=== PATIENT | male | born 1990 | race African-American/Black ===

== ENCOUNTER → 2018-05-13 | Outpatient (CLI) | payer OTHER | LOC: ULTRA 07:41 | DX: K82.9 Disease of gallbladder, unspecified (principal); R16.0 Hepatomegaly, not elsewhere classified ==

== ENCOUNTER 2019-03-22 10:12 | Emergency (ER) | payer OTHER ==
[~2019-03-22] VITALS: Ht 175.3 cm; Wt 72.6 kg
[2019-03-22 10:12] VITALS: BP 123/84
[2019-03-22 10:51] LABS: URINE BILIRUBIN NEGATIVE (Negative); URINE BLOOD TRACE (Negative); URINE CLARITY CLEAR; URINE COLOR YELLOW; URINE GLUCOSE-RANDOM* NEGATIVE (Negative); URINE KETONES NEGATIVE (Negative); URINE LEUKOCYTES NEGATIVE (Negative); URINE NITRITE NEGATIVE (Negative); URINE PROTEIN (DIPSTICK) NEGATIVE (Negative); URINE SPECIFIC GRAVITY 1.015 (1.005-1.035); URINE UROBILINOGEN 0.2 E.U./dl (0.2-1.0)
[2019-03-22 11:14] LABS: ABSOLUTE NEUTROPHILS 2.1 thou/uL (1.4-8.2); BASOPHILS 0.8 % (0.0-2.0); EOSINOPHILS 1.5 % (0.0-3.0); HEMATOCRIT 41.2 % (42.0-52.0); HEMOGLOBIN 13.6 gm/dL (14.0-18.0); LYMPHOCYTES 38.4 % (24.0-44.0); MCH 27.8 pg (26.0-34.0); MCHC 32.9 g/dL (28.0-37.0); MCV 84.4 fL (80.0-100.0); MONOCYTES 10.7 % (1.0-8.0); PLATELET COUNT 242 thou/uL (150-400); POLYS 48.6 % (36.0-66.0); RBC 4.88 mil/uL (4.50-6.00); WBC 4.3 thou/uL (4.0-11.0)
[2019-03-22 11:20] LABS: CALCIUM 9.2 mg/dL (8.5-10.1); CREATININE 0.9 mg/dL (0.7-1.3)
[2019-03-22 11:26] LABS: ALBUMIN 4.2 g/dL (3.4-5.0); TOTAL BILIRUBIN 0.5 mg/dL (<0.1-1.0); TOTAL PROTEIN 7.8 g/dL (6.4-8.2)
[2019-03-22] MEDS ORDERED: NAPROSYN500 MG PO (11:42)
[2019-03-22] MEDS ORDERED: NORFLEX100 MG PO (11:42)
[2019-03-23] MEDS ORDERED: LIDOCAINE PAIN1 EACH TRANSDERM (15:26)
[2019-03-23] MEDS ORDERED: MOBIC15 MG PO (15:26)
== END 2019-03-22 11:45 | disposition home or self-care (01) ==
LOC: ER 10:12
PROVIDERS: Emergency Medicine
DX: S29.012A Strain of muscle and tendon of back wall of thorax, initial encounter (principal); F17.210 Nicotine dependence, cigarettes, uncomplicated; X50.0XXA Overexertion from strenuous movement or load, initial encounter; Y92.89 Other specified places as the place of occurrence of the external cause; Y93.89 Activity, other specified; Y99.8 Other external cause status

== ENCOUNTER 2019-03-23 13:22 | Emergency (ER) | payer OTHER ==
[~2019-03-23] VITALS: Ht 175.3 cm; Wt 68.0 kg
[~2019-03-23 13:22] MED LIST: NAPROSYN500 MG PO; NORFLEX100 MG PO
[2019-03-23] MEDS ORDERED: MOBIC15 MG PO (15:26)
[2019-03-23] MEDS ORDERED: LIDOCAINE PAIN1 EACH TRANSDERM (15:26)
[2019-03-23 15:27] VITALS: BP 112/67
== END 2019-03-23 15:20 | disposition home or self-care (01) ==
LOC: ER 13:22
DX: S09.90XA Unspecified injury of head, initial encounter (principal); M54.5 Low back pain; M79.641 Pain in right hand; F17.210 Nicotine dependence, cigarettes, uncomplicated; X58.XXXA Exposure to other specified factors, initial encounter; Y93.89 Activity, other specified; Y92.89 Other specified places as the place of occurrence of the external cause; Y99.8 Other external cause status

== ENCOUNTER 2020-01-03 13:54 | Emergency (ER) | payer OTHER ==
[~2020-01-03] VITALS: Ht 175.3 cm; Wt 77.1 kg
[~2020-01-03 13:54] MED LIST changes: +LIDOCAINE PAIN1 EACH TRANSDERM; +MOBIC15 MG PO
[2020-01-03 14:01] VITALS: BP 130/85
== END 2020-01-03 14:38 | disposition home or self-care (01) ==
LOC: ER 13:54
DX: R19.7 Diarrhea, unspecified (principal); F17.210 Nicotine dependence, cigarettes, uncomplicated; Z79.899 Other long term (current) drug therapy

== ENCOUNTER 2020-01-10 10:22 | Emergency (ER) | payer OTHER ==
[~2020-01-10] VITALS: Ht 172.7 cm; Wt 68.0 kg
[2020-01-10] MEDS ORDERED: ZOFRAN ODT4 MG DISSOLVE (12:09)
[2020-01-10 12:10] VITALS: BP 129/94
== END 2020-01-10 12:10 | disposition home or self-care (01) ==
LOC: ER 10:22
DX: R11.2 Nausea with vomiting, unspecified (principal); F17.210 Nicotine dependence, cigarettes, uncomplicated; Z79.899 Other long term (current) drug therapy

== ENCOUNTER 2020-01-26 22:43 | Emergency (ER) | payer OTHER ==
[~2020-01-26] VITALS: Ht 172.7 cm; Wt 68.0 kg
[~2020-01-26 22:43] MED LIST changes: +ZOFRAN ODT4 MG DISSOLVE
[2020-01-26 22:45] VITALS: BP 113/78
== END 2020-01-26 23:30 | disposition home or self-care (01) ==
LOC: ER 22:43
DX: R19.7 Diarrhea, unspecified (principal); F17.210 Nicotine dependence, cigarettes, uncomplicated

== ENCOUNTER 2020-05-18 09:14 | Emergency (ER) | payer OTHER ==
[~2020-05-18] VITALS: Ht 172.7 cm; Wt 68.0 kg
[2020-05-18 10:00] VITALS: BP 122/75
== END 2020-05-18 10:00 | disposition home or self-care (01) ==
LOC: ER 09:14
DX: J01.90 Acute sinusitis, unspecified (principal); H93.8X2 Other specified disorders of left ear